=== PATIENT | male | born 1980 | race Caucasian/White ===

== ENCOUNTER 2025-02-01 10:33 | Emergency (ER) | payer MEDICAID ==
[~2025-02-01] VITALS: Ht 177.8 cm; Wt 85.0 kg
[2025-02-01 10:34] VITALS: O2SAT 98
[2025-02-01 11:24] LABS: BASOPHILS % 0.4 % (0.0-2.0); EOSINOPHILS % 1.3 % (0.0-5.0); HEMATOCRIT. 41.7 % (42.0-52.0); HEMOGLOBIN. 13.7 g/dL (14.0-18.0); LYMPHOCYTES % 30.0 % (20.0-50.0); MEAN PLATELET VOLUME 7.2 fl (7.4-10.4); MONOCYTES % 9.9 % (2.0-8.0); NEUTROPHILS % 58.4 % (40.0-76.0); PLATELET 266 x1000/uL (130-400); RED BLOOD CELL COUNT 4.92 mill/uL (4.7-6.1); RED CELL DISTRIBUTION WIDTH 14.1 % (11.6-14.6)
[2025-02-01 11:36] LABS: CREATININE 0.9 mg/dL (0.6-1.3)
[2025-02-01 11:37] LABS: ETHANOL BLOOD < 10 mg/dL (<10); PHENYTOIN 9.5 ug/mL (10-20); UREA NITROGEN BLOOD 9 mg/dL (9-23)
[2025-02-01 11:40] LABS: CARBAMAZEPINE < 0.4 ug/mL (4-12); PHENOBARBITAL < 3.0 ug/mL (15.0-40.0); VALPROIC ACID < 3.0 ug/mL (50-100)
[2025-02-01 15:16] VITALS: BP 123/78; PULSE 83; RESP 22; TEMP 37.1; O2SAT 98
== END 2025-02-01 15:20 | disposition home or self-care (01) ==
LOC: ER 10:33
DX: R56.9 Unspecified convulsions (principal)
CPT/HCPCS: 80048; 80320; 80156; 80185; 80184; 80165; 85025; 36415; 70450; 93005; 96365; 99285; J1165; J7050; Z7610 ×2; A4606; G0480